=== PATIENT | female | born 1995 | race Caucasian/White ===

== ENCOUNTER 2017-12-18 13:23 | Outpatient (CLI) | payer MEDICAID | END 2017-12-18 18:00 | disposition home or self-care (01) | LOC: OBT 13:23 → L-D 13:24 → OBT 18:00 | DX: O36.5930 Maternal care for other known or suspected poor fetal growth, third trimester, not applicable or unspecified (principal); O36.8130 Decreased fetal movements, third trimester, not applicable or unspecified; Z3A.38 38 weeks gestation of pregnancy | CPT/HCPCS: 76815; 76818 ==

== ENCOUNTER 2017-12-18 21:37 | Inpatient (IN) | payer MEDICAID ==
[2017-12-18] MEDS ORDERED: NACL 0.9% 3 ML SYG IV (22:30)
[2017-12-19 01:16] LABS: ALANINE AMINOTRANSFERASE 12 IU/L (13-69); ALBUMIN 3.2 g/dl (3.3-4.9); ALKALINE PHOSPHATASE 294 IU/L (42-121); ASPARTATE AMINO TRANSFERASE 18 IU/L (15-46); BILIRUBIN,INDIRECT 0.1 mg/dl (0-1.1); BILIRUBIN,TOTAL 0.1 mg/dl (0.2-1.3); TOTAL PROTEIN 6.3 g/dl (6.1-8.1)
[2017-12-19 01:46] LABS: HEPATITIS B SURFACE ANTIGEN NEGATIVE (NEGATIVE)
[2017-12-19 02:04] LABS: HEPATITIS C VIRAL ANTIBODY NEGATIVE (NEGATIVE)
[2017-12-19 02:04] LABS: HEPATITIS B CORE ANTIBODY NEGATIVE (NEGATIVE)
[2017-12-19 05:03] LABS: HEPATITIS B SURFACE ANTIBODY NEGATIVE (NEGATIVE)
[2017-12-19] MEDS: PRENATAL VITAMIN PO (08:48)
[2017-12-19] MEDS: FERROUS SULFATE (EC) 325 MG TAB PO (08:48)
== END 2017-12-19 08:55 | disposition home or self-care (01) | DRG 780 ==
LOC: L-D 21:37
DX: O47.1 False labor at or after 37 completed weeks of gestation (principal); Z3A.39 39 weeks gestation of pregnancy
CPT/HCPCS: 76818; 80076; 86704; 86706; 86708; 86709; 86803; 87340

== ENCOUNTER 2017-12-23 09:31 | Outpatient (CLI) | payer MEDICAID | END 2017-12-23 11:19 | disposition home or self-care (01) | LOC: OBT 09:31 → L-D 09:32 → OBT 11:19 | DX: O62.9 Abnormality of forces of labor, unspecified (principal); Z3A.39 39 weeks gestation of pregnancy | CPT/HCPCS: 76818 ==

== ENCOUNTER 2017-12-31 20:59 | Inpatient (IN) | payer MEDICAID ==
[2017-12-31] MEDS ORDERED: LACTATED RINGER'S 1,000 ML IV (22:16)
[2017-12-31 22:29] LABS: ADD MAN DIFF? NO
[2017-12-31] MEDS ORDERED: BUTORPHANOL 1 MG INJ IV (22:30)
[2017-12-31] MEDS ORDERED: LIDOCAINE 1% (MPF) 30 ML INJ INJ (22:30)
[2017-12-31] MEDS ORDERED: IBUPROFEN 600 MG TAB PO (22:30)
[2017-12-31] MEDS ORDERED: METHYLERGONOVINE 0.2 MG INJ IM (22:30)
[2017-12-31] MEDS ORDERED: OXYTOCIN 30 UNITS/LR 500 ML IV ×3 (22:30)
[2017-12-31] MEDS ORDERED: MISOPROSTOL 200 MCG TAB PR (22:30)
[2017-12-31] MEDS ORDERED: CARBOPROST 250 MCG INJ IM (22:30)
[2017-12-31] MEDS: LACTATED RINGER'S 1,000 ML IV (22:31)
[2017-12-31 22:32] LABS: BASOPHILS % 0.2 % (0.0-2.0); EOSINOPHILS # 0.1 10^3/ul (0.0-0.5); EOSINOPHILS % 1.1 % (0.0-7.0); HEMATOCRIT 37.4 % (37.0-47.0); HEMOGLOBIN 12.7 g/dl (12.0-16.0); LYMPHOCYTES # 2.4 10^3/ul (0.8-2.9); LYMPHOCYTES % 19.4 % (15.0-51.0); MEAN CORPUSCULAR HEMOGLOBIN 30.2 pg (29.0-33.0); MEAN PLATELET VOLUME 12.2 fl (7.4-10.4); MONOCYTE # 1.1 10^3/ul (0.3-0.9); MONOCYTES % 9.1 % (0.0-11.0); NEUTROPHIL # 8.5 10^3/ul (1.6-7.5); NEUTROPHILS % 69.5 % (39.0-77.0); PLATELET COUNT 224 10^3/UL (140-415); RED CELL DISTRIBUTION WIDTH 13.5 % (11.5-14.5)
[2017-12-31 22:32] LABS: WHITE BLOOD COUNT 12.1 10^3/ul (4.8-10.8)
[2017-12-31 22:38] LABS: INR 0.92; PROTIME 12.4 Sec (11.9-14.9)
[2017-12-31 22:39] LABS: PARTIAL THROMBOPLASTIN TIME 27.9 Sec (25.0-35.0)
[2018-01-01] MEDS: MISOPROSTOL 25 MCG CAPSULE PO ×4 (00:39→19:33)
[2018-01-01] MEDS: LACTATED RINGER'S 1,000 ML IV ×3 (05:24→19:34)
[2018-01-01 16:42] LABS: RAPID PLASMA REAGIN NONREACTIVE (NR)
[2018-01-01] MEDS: BUTORPHANOL 2 MG INJ IV (22:00)
[2018-01-02] MEDS: LACTATED RINGER'S 1,000 ML IV ×3 (04:14→07:16)
[2018-01-02] MEDS ORDERED: ONDANSETRON 4 MG INJ IV ×2 (07:00→12:00)
[2018-01-02] MEDS ORDERED: DIPHENHYDRAMINE 50 MG INJ IV ×2 (07:00→12:00)
[2018-01-02] MEDS ORDERED: ZOLPIDEM 5 MG TAB PO (07:00)
[2018-01-02] MEDS ORDERED: HYDROmorphONE 0.5 MG/0.5 ML SYG IV ×4 (07:00→12:00)
[2018-01-02] MEDS ORDERED: NALOXONE (0.4 MG/ML) INJ IV ×2 (07:00→12:00)
[2018-01-02] MEDS ORDERED: FENTAnyl 2MCG/ML-ROPIV 0.2% 100 ML BAG EPI (07:00)
[2018-01-02] MEDS ORDERED: KETOROLAC 30 MG INJ IV (07:00)
[2018-01-02] MEDS ORDERED: METHYLERGONOVINE 0.2 MG INJ IM ×2 (09:00→12:00)
[2018-01-02] MEDS ORDERED: CARBOPROST 250 MCG INJ IM ×2 (09:00→12:00)
[2018-01-02] MEDS ORDERED: OXYTOCIN 30 UNITS/LR 500 ML IV ×2 (09:00→12:00)
[2018-01-02] MEDS ORDERED: MISOPROSTOL 200 MCG TAB PR ×2 (09:00→12:00)
[2018-01-02] MEDS ORDERED: LIDOCAINE 2% (SDV) 5 ML INJ (10:23)
[2018-01-02] MEDS ORDERED: METOCLOPRAMIDE 10 MG INJ (10:40)
[2018-01-02] MEDS ORDERED: OXYTOCIN 10 UNIT INJ (10:40)
[2018-01-02] MEDS ORDERED: DEXAMETHASONE 4 MG/ML 1 ML INJ (10:40)
[2018-01-02] MEDS ORDERED: MEPERIDINE 100 MG INJ (11:14)
[2018-01-02] MEDS: CEFAZOLIN 2 GM/50 ML (PMX) 50 ML IV (11:28)
[2018-01-02] MEDS ORDERED: morphine SULFATE/PF (10 MG/10 ML) INJ (11:31)
[2018-01-02] MEDS ORDERED: DEXTROSE 5%-LR 1,000 ML IV (11:50)
[2018-01-02] MEDS ORDERED: METHYLERGONOVINE 0.2 MG TAB PO (12:00)
[2018-01-02] MEDS ORDERED: morphine 2 MG INJ IV ×2 (12:00)
[2018-01-02] MEDS ORDERED: ACETAMINOPHEN 500 MG TAB PO (12:00)
[2018-01-02] MEDS ORDERED: NALBUPHINE HCL (10 MG/1 ML) INJ IV (12:00)
[2018-01-02] MEDS ORDERED: HYDROCODONE/APAP (5/325) TAB PO (12:00)
[2018-01-02] MEDS: OXYTOCIN 30 UNITS/LR 500 ML IV ×2 (12:47→14:33)
[2018-01-02 13:41] LABS: HEPATITIS C VIRAL ANTIBODY NEGATIVE (NEGATIVE)
[2018-01-02] MEDS: OXYCODONE/ACETAMINOPHEN (5/325) TAB PO ×2 (15:29→20:00)
[2018-01-02] MEDS: KETOROLAC 30 MG INJ IV (16:53)
[2018-01-02] MEDS: SENNA/DOCUSATE NA (8.6MG/50MG) TAB PO (21:00)
[2018-01-02] MEDS: LANOLIN 7 GM TUBE TOP (22:08)
[2018-01-03] MEDS: LACTATED RINGER'S 1,000 ML IV ×2 (00:14→20:00)
[2018-01-03] MEDS: OXYCODONE/ACETAMINOPHEN (5/325) TAB PO ×3 (03:14→20:08)
[2018-01-03 07:10] LABS: ADD MAN DIFF? NO
[2018-01-03 07:17] LABS: WHITE BLOOD COUNT 15.1 10^3/ul (4.8-10.8)
[2018-01-03 07:17] LABS: BASOPHILS % 0.1 % (0.0-2.0); EOSINOPHILS % 0.3 % (0.0-7.0); HEMATOCRIT 29.6 % (37.0-47.0); LYMPHOCYTES # 2.7 10^3/ul (0.8-2.9); LYMPHOCYTES % 17.9 % (15.0-51.0); MEAN CORPUSCULAR HEMOGLOBIN 30.6 pg (29.0-33.0); MEAN CORPUSCULAR HGB CONC 33.8 g/dl (32.0-37.0); MEAN CORPUSCULAR VOLUME 90.5 fl (82.0-101.0); MEAN PLATELET VOLUME 11.8 fl (7.4-10.4); MONOCYTE # 1.1 10^3/ul (0.3-0.9); MONOCYTES % 7.4 % (0.0-11.0); NEUTROPHIL # 11.2 10^3/ul (1.6-7.5); NEUTROPHILS % 73.8 % (39.0-77.0); PLATELET COUNT 179 10^3/UL (140-415); RED BLOOD COUNT 3.27 10^6/ul (4.20-5.40); RED CELL DISTRIBUTION WIDTH 13.7 % (11.5-14.5)
[2018-01-03] MEDS: SENNA/DOCUSATE NA (8.6MG/50MG) TAB PO ×2 (09:13→20:08)
[2018-01-03] MEDS: KETOROLAC 30 MG INJ IV (09:14)
[2018-01-03] MEDS: IBUPROFEN 800 MG TAB PO ×2 (12:45→22:07)
[2018-01-04] MEDS: OXYCODONE/ACETAMINOPHEN (5/325) TAB PO ×5 (04:13→21:00)
[2018-01-04] MEDS: IBUPROFEN 800 MG TAB PO ×3 (05:59→22:08)
[2018-01-04 09:10] LABS: ADD MAN DIFF? NO
[2018-01-04 09:16] LABS: BASOPHILS % 0.3 % (0.0-2.0); EOSINOPHILS # 0.1 10^3/ul (0.0-0.5); EOSINOPHILS % 0.8 % (0.0-7.0); HEMOGLOBIN 10.5 g/dl (12.0-16.0); LYMPHOCYTES # 2.3 10^3/ul (0.8-2.9); MEAN CORPUSCULAR HEMOGLOBIN 31.1 pg (29.0-33.0); MEAN CORPUSCULAR HGB CONC 33.9 g/dl (32.0-37.0); MEAN CORPUSCULAR VOLUME 91.7 fl (82.0-101.0); MEAN PLATELET VOLUME 10.9 fl (7.4-10.4); MONOCYTE # 0.8 10^3/ul (0.3-0.9); MONOCYTES % 6.9 % (0.0-11.0); NEUTROPHIL # 8.6 10^3/ul (1.6-7.5); NEUTROPHILS % 72.4 % (39.0-77.0); PLATELET COUNT 197 10^3/UL (140-415); RED BLOOD COUNT 3.38 10^6/ul (4.20-5.40); RED CELL DISTRIBUTION WIDTH 13.9 % (11.5-14.5)
[2018-01-04 09:16] LABS: WHITE BLOOD COUNT 11.9 10^3/ul (4.8-10.8)
[2018-01-04] MEDS: SENNA/DOCUSATE NA (8.6MG/50MG) TAB PO ×2 (09:39→21:00)
[2018-01-05] MEDS: OXYCODONE/ACETAMINOPHEN (5/325) TAB PO ×3 (01:25→13:16)
[2018-01-05] MEDS: IBUPROFEN 800 MG TAB PO (05:48)
[2018-01-05] MEDS: SENNA/DOCUSATE NA (8.6MG/50MG) TAB PO (08:56)
[2018-01-05] MEDS: MEASLES,MUMPS,RUBELLA VACCINE INJ SC* (09:00)
[2018-01-05] MEDS: DIPHTH/TET/ACEL PERTUSS (ADULT) 0.5 ML VIAL IM* (13:39)
== END 2018-01-05 14:59 | disposition home or self-care (01) | DRG 765 ==
LOC: L-D 01-02 10:12 → PP1 01-02 14:34
PROVIDERS: Obstetrics & Gynecology
PROC: 10D00Z1 Extraction of Products of Conception, Low, Open Approach (ICD-10-PCS; principal; 2018-01-02 10:45)
DX: O48.0 Post-term pregnancy (principal); O41.03X0 Oligohydramnios, third trimester, not applicable or unspecified; O76 Abnormality in fetal heart rate and rhythm complicating labor and delivery; Z37.0 Single live birth; Z3A.41 41 weeks gestation of pregnancy
CPT/HCPCS: 62319; 76816; 76818; 85025; 85610; 85730; 86592; 86803; 86850; 86900; 86901; 99464